=== PATIENT | male | born 1960 | race Caucasian/White ===

== ENCOUNTER 2022-08-05 12:00 | Emergency (ER) | payer BC ==
[2022-08-05] MEDS ORDERED: NA CHLORIDE 0.9% 1,000 ML ONE (13:21)
[2022-08-05 13:36] LABS: Absolute Lymphocytes (CBC) 1.5 K/uL (0.7-4.9); Hematocrit 46.4 % (39.6-49.0); Lymphocytes % 25.6 % (15.3-44.8); MCV 84.5 fL (80-100); MPV 7.8 fL (7.6-11.3); RBC Red Blood Cell Count 5.49 M/uL (4.33-5.43)
[2022-08-05 13:56] LABS: Albumin 3.4 g/dL (3.4-5.0); Bilirubin Total 0.4 mg/dL (0.2-1.0); Potassium 3.9 mEq/L (3.5-5.1); Protein, Total 7.3 g/dL (6.4-8.2); Troponin High Sensitivity 6.8 pg/mL (<58.9)
--- NOTE | 2022-08-05 17:44 | RAD REPORT ---
EXAM DESCRIPTION: CT - Abdomen Pelvis W Contrast - 08/05/2022 5:02 pm CLINICAL HISTORY: ABD PAIN COMPARISON: No comparisons TECHNIQUE: Thin cut axial CT imaging of the abdomen and pelvis was performed following intravenous a dministration of 100 mL Isovue 300. Multiplanar reformats were generated and reviewed. All CT scans are performed using dose optimization technique as appropriate and may include automated exposure control or mA/KV adjustment according to patient size. FINDINGS: No suspicious findings in the lung bases. The liver, spleen, and pancreas show no suspicious findings. Single 1.5 centimeter gallstone near the neck. Symmetric renal function is seen with no hydronephrosis or suspicious renal mass. No dilated bowel loops or bowel wall thickening. Fluid filling through borderline distended bowel, wi th small air-fluid levels. Oral contrast progresses to the level of the sigmoid colon. No free air, f ree fluid or inflammatory stranding. No hernia, mass or bulky lymphadenopathy. Colonic diverticulosis . The urinary bladder is without significant finding. No suspicious bony findings. Anterior wedge compression deformity at L1, likely chronic. IMPRESSION: Fluid filling throughout borderline distended small bowel loops, without evidence of obs truction. Findings may suggest ileus or enteritis. Single gallstone.
--- NOTE | 2022-08-05 18:00 | EDPHYS ---
Physician Documentation [facility] Name: Gianni Szymanski Sr Age: 62 yrs Sex: Male : 1960 Arrival Date: 08/05/2022 Time: 12:00 Bed 19 Private MD: ED Physician Zay Levin HPI: 08/05 14:46 This 62 yrs old Male presents to ER via Ambulatory with complaints of gi blockage. rt 14:47 Patient presents to the ED with 2 days of abdominal pain, nausea, vomiting. For 2 days. rt Patient was seen at [facility] ER yesterday, was diagnosed with a small bowel obstruction, left AGAINST MEDICAL ADVICE at that time when it was recommended that he be transferred here for further eval. The patient states that the symptoms have persisted to today prompting him to come here for further eval. Pain is aching nature, nonradiating. Does report mild abdominal distention, denies other acute complaints at this time, symptoms are moderate in severity.. Historical: - Allergies: 12:18 No Known Allergies; vg1 - Home Meds: 12:18 None [Active]; vg1 - PMHx: 12:18 None; vg1 - PSHx: 12:18 Right Shoulder; Left Knee; Hernia repair; vg1 - Immunization history:: Client reports having NOT received the Covid vaccine. - Social history:: Smoking status: Patient denies any tobacco usage or history of. - Family history:: not pertinent. ROS: 14:47 Constitutional: Negative for fever, chills, and weight loss, Cardiovascular: Negative rt for chest pain, palpitations, and edema, Respiratory: Negative for shortness of breath, cough, wheezing, and pleuritic chest pain, MS/Extremity: Negative for injury and deformity, Skin: Negative for injury, rash, and discoloration, Neuro: Negative for headache, weakness, numbness, tingling, and seizure, Psych: Negative for depression, anxiety, suicide ideation, homicidal ideation, and hallucinations. 14:47 Abdomen/GI: Positive for abdominal pain, Negative for nausea and vomiting. Exam: 13:39 ECG was reviewed by the Attending Physician. rt 14:47 Constitutional: This is a well developed, well nourished patient who is awake, alert, rt and in no acute distress. Head/Face: Normocephalic, atraumatic. Chest/axilla: Normal chest wall appearance and motion. Nontender with no deformity. No lesions are appreciated. Cardiovascular: Regular rate and rhythm with a normal S1 and S2. No gallops, murmurs, or rubs. Normal PMI, no JVD. No pulse deficits. Respiratory: Lungs have equal breath sounds bilaterally, clear to auscultation and percussion. No rales, rhonchi or wheezes noted. No increased work of breathing, no retractions or nasal flaring. 14:47 Abdomen/GI: Mild abdominal distention, mild tenderness diffusely without rebound, guarding, distention. Vital Signs: 12:15 BP 121 / 82; Pulse 102; Resp 18; Temp 98.6(O); Pulse Ox 97% on R/A; Weight 79.38 kg; vg1 Height 5 ft. 10 in. ; Pain 4/10; 13:31 BP 131 / 72; Pulse 91; Resp 20 S; Pulse Ox 98% on R/A; kc6 14:28 BP 112 / 67; Pulse 82; Resp 20 S; Pulse Ox 95% on R/A; kc6 15:00 BP 116 / 75; Pulse 94; Resp 14; Pulse Ox 97% on R/A; eh3 16:00 BP 130 / 95; Pulse 82; Resp 16; Pulse Ox 98% on R/A; eh3 17:00 BP 121 / 74; Pulse 89; Resp 19; Pulse Ox 98% on R/A; eh3 12:15 Body Mass Index 25.11 (79.38 kg, 177.8 cm) vg1 12:15 Pain Scale: Adult vg1 MDM: 13:03 Patient medically screened. rt 18:01 Differential diagnosis: Small bowel obstruction, ileus, gastroenteritis. Data reviewed: rt vital signs, nurses notes, lab test result(s), radiologic studies. Consideration of Admission/Observation Escalation of care including admission/observation considered. Management of patient was discussed with the following: Film Numberer: Discussed with surgeon who requests repeat CT scan be performed, disposition pending that. I considered the following discharge prescriptions or medication management in the emergency department Medications were administered in the Emergency Department. See MAR. Counseling: I had a detailed discussion with the patient and/or guardian regarding: the historical points, exam findings, and any diagnostic results supporting the discharge/admit diagnosis, lab results, radiology results, the need for outpatient follow up, to return to the emergency department if symptoms worsen or persist or if there are any questions or concerns that arise at home. Response to treatment: the patient's symptoms have markedly improved after treatment. ED course: Patient has no evidence of a small bowel obstruction on repeat imaging. Shows enteritis versus ileus. Patient does report having diarrhea, fever enteritis given this point of history. Patient does state that the diarrhea is black, states that he has been taking Pepto-Bismol. He denies any coffee-ground emesis, hematemesis. I do not suspect a GI bleed given normal hemoglobin, this was discussed at length with the patient who is in agreement with discharge. Patient to follow-up as an outpatient, return precautions discussed.. 08/05 13:13 Order name: CBC with Diff; Complete Time: 14:38 rt 08/05 13:13 Order name: CMP; Complete Time: 14:38 rt 08/05 13:13 Order name: Lipase; Complete Time: 14:38 rt 08/05 13:13 Order name: Troponin High Sensitivity; Complete Time: 14:38 rt 08/05 13:13 Order name: CPK; Complete Time: 14:38 rt 08/05 13:13 Order name: Lactate w/ 2H reflex if indic.; Complete Time: 14:38 rt 08/05 14:56 Order name: CT Abd/Pelvis - PO and IV Contrast; Complete Time: 17:45 rt 08/05 13:13 Order name: EKG; Complete Time: 13:13 rt 08/05 13:13 Order name: EKG - Nurse/Tech; Complete Time: 13:30 rt EC:39 Rate is 91 beats/min. Rhythm is regular, Normal Sinus Rhythm with No ectopy. QRS [place] rt is Normal. ID interval is normal. QRS interval is normal. QT interval is normal. No Q waves. T waves are Normal. No ST changes noted. Interpreted by me. Administered Medications: 13:30 Drug: NS 0.9% IV 1000 ml Route: IV; Rate: 1 bolus; Site: right antecubital; kc6 16:00 Follow up: IV Status: Completed infusion; IV Intake: 1000ml eh3 Disposition Summary: 08/05/22 17:59 Discharge Ordered Location: Home rt Problem: new rt Symptoms: have improved rt Condition: Stable rt Diagnosis - Infectious gastroenteritis and colitis, unspecified rt Followup: rt - With: Private Physician - When: 2 - 3 days - Reason: Discharge Instructions: - Discharge Summary Sheet rt - Viral Gastroenteritis, Adult rt Forms: - Work release form eh3 - Medication Reconciliation Form rt - Thank You Letter rt - Antibiotic Education rt - Prescription Opioid Use rt Prescriptions: - ondansetron 4 mg Oral Tablet,disintegrating - take 1 tablet by ORAL route every 6 hours for 4 days as needed for nausea and rt vomiting; 18 tablet; Refills: 0, Product Selection Permitted - dicyclomine 10 mg Oral Capsule - take 1 capsule by ORAL route 4 times per day; 18 capsule; Refills: 0, Product rt Selection Permitted Signatures: Dispatcher [employer] Fela Zmaan RN RN vg1 Ariela Katz RN RN kc6 Zay Levin MD MD rt CarolinaKourtney RN eh3
--- NOTE | 2022-08-05 18:00 | ER ---
Nurse's Notes [facility] Name: Gianni Szymanski Sr Age: 62 yrs Sex: Male : 1960 Arrival Date: 08/05/2022 Time: 12:00 Bed 19 Private MD: Diagnosis: Infectious gastroenteritis and colitis, unspecified Presentation: 08/05 12:15 Chief complaint: Patient states: Was seen at [place] ED last night for N/V was told has vg1 a Bowel Obstruction. Pt currently c/o lower ABD pain with NVD x 2 days. Coronavirus screen: Vaccine status: Patient reports being unvaccinated. Client denies travel out of the [place] in the last 14 days. Ebola Screen: Patient negative for fever greater than or equal to 101.5 degrees Fahrenheit, and additional compatible Ebola Virus Disease symptoms Patient denies exposure to infectious person. Patient denies travel to an Ebola-affected area in the 21 days before illness onset. Initial Sepsis Screen: Does the patient meet any 2 criteria? HR > 90 bpm. Does the patient have a suspected source of infection? No. Patient's initial sepsis screen is negative. Risk Assessment: Do you want to hurt yourself or someone else? Patient reports no desire to harm self or others. Onset of symptoms was August 03, 2022. 12:15 Method Of Arrival: Ambulatory vg1 12:15 Acuity: ALBER 3 vg1 Triage Assessment: 12:18 General: Appears uncomfortable, Behavior is calm, cooperative. Pain: Complains of pain vg1 in right lower quadrant and left lower quadrant Pain currently is 4 out of 10 on a pain scale. Pain began 2-3 days ago. GI: Reports lower abdominal pain, diarrhea, nausea, vomiting. Historical: - Allergies: 12:18 No Known Allergies; vg1 - Home Meds: 12:18 None [Active]; vg1 - PMHx: 12:18 None; vg1 - PSHx: 12:18 Right Shoulder; Left Knee; Hernia repair; vg1 - Immunization history:: Client reports having NOT received the Covid vaccine. - Social history:: Smoking status: Patient denies any tobacco usage or history of. - Family history:: not pertinent. Screenin:[address] [facility] ED Fall Risk Assessment (Adult) History of falling in the last 3 months, kc6 including since admission No falls in past 3 months (0 pts) Confusion or Disorientation No (0 pts) Intoxicated or Sedated No (0 pts) Impaired Gait No (0 pts) Mobility Assist Device Used No (0 pt) Altered Elimination No (0 pt) Score/Fall Risk Level 0 - 2 = Low Risk Oriented to surroundings, Maintained a safe environment, Educated pt \T\ family on fall prevention, incl call for assistance when getting out of bed, Assessed \T\ reinforced patient's understanding of fall precautions, Hourly rounding (assess needs \T\ fall precautionary measures) done. Abuse screen: Denies threats or abuse. Denies injuries from another. Nutritional screening: No deficits noted. Tuberculosis screening: No symptoms or risk factors identified. Assessment: 13:09 General: Appears in no apparent distress. comfortable, Behavior is calm, cooperative, kc6 appropriate for age. Pain: Denies pain. Neuro: Marshall Agitation-Sedation Scale (RASS): 0 - Alert and Calm Level of Consciousness is awake, alert, obeys commands, Oriented to person, place, time, situation, Appropriate for age. Cardiovascular: Heart tones S1 S2 present Capillary refill < 3 seconds Rhythm is sinus tachycardia. Respiratory: Airway is patent Trachea midline Respiratory effort is even, unlabored, Respiratory pattern is regular, symmetrical. GI: Abdomen is flat, non-distended, Bowel sounds hypoactive in right upper quadrant, left upper quadrant, right lower quadrant and left lower quadrant Reports diarrhea, nausea, vomiting. : No signs and/or symptoms were reported regarding the genitourinary system. EENT: No signs and/or symptoms were reported regarding the EENT system. Derm: No signs and/or symptoms reported regarding the dermatologic system. Skin is intact, Skin is pink, warm \T\ dry. Musculoskeletal: No signs and/or symptoms reported regarding the musculoskeletal system. Circulation, motion, and sensation intact. Capillary refill < 3 seconds, Range of motion: intact in all extremities. 14:09 Reassessment: Patient appears in no apparent distress at this time. No changes from kc6 previously documented assessment. Patient and/or family updated on plan of care and expected duration. Pain level reassessed. Patient is alert, oriented x 3, equal unlabored respirations, skin warm/dry/pink. 15:00 Reassessment: Patient appears in no apparent distress at this time. Patient and/or eh3 family updated on plan of care and expected duration. Pain level reassessed. Patient is alert, oriented x 3, equal unlabored respirations, skin warm/dry/pink. 16:00 Reassessment: Patient appears in no apparent distress at this time. Patient and/or eh3 family updated on plan of care and expected duration. Pain level reassessed. Patient is alert, oriented x 3, equal unlabored respirations, skin warm/dry/pink. 17:00 Reassessment: Patient appears in no apparent distress at this time. Patient and/or eh3 family updated on plan of care and expected duration. Pain level reassessed. Patient is alert, oriented x 3, equal unlabored respirations, skin warm/dry/pink. Vital Signs: 12:15 BP 121 / 82; Pulse 102; Resp 18; Temp 98.6(O); Pulse Ox 97% on R/A; Weight 79.38 kg; vg1 Height 5 ft. 10 in. ; Pain 4/10; 13:31 BP 131 / 72; Pulse 91; Resp 20 S; Pulse Ox 98% on R/A; kc6 14:28 BP 112 / 67; Pulse 82; Resp 20 S; Pulse Ox 95% on R/A; kc6 15:00 BP 116 / 75; Pulse 94; Resp 14; Pulse Ox 97% on R/A; eh3 16:00 BP 130 / 95; Pulse 82; Resp 16; Pulse Ox 98% on R/A; eh3 17:00 BP 121 / 74; Pulse 89; Resp 19; Pulse Ox 98% on R/A; eh3 12:15 Body Mass Index 25.11 (79.38 kg, 177.8 cm) vg1 12:15 Pain Scale: Adult vg1 ED Course: 12:08 Patient arrived in ED. am2 12:18 Triage completed. vg1 12:18 Arm band placed on. vg1 12:20 Zay Levin MD is Attending Physician. rt 13:08 Ariela Katz RN is Primary Nurse. kc6 13:08 Patient has correct armband on for positive identification. Bed in low position. Call kc6 light in reach. Side rails up X 1. 13:30 Inserted saline lock: 20 gauge in right antecubital area, using aseptic technique. kc6 Blood collected. 15:00 Report received from JACOB Titus. eh3 15:51 Note: CT exam will be done at 1705, due to 2 hr wait time post finishing oral contrast [id number] at 1505.. 17:03 CT Abd/Pelvis - PO and IV Contrast In Process Unspecified. EDMS 18:15 No provider procedures requiring assistance completed. IV discontinued, intact, eh3 bleeding controlled, No redness/swelling at site. Pressure dressing applied. Administered Medications: 13:30 Drug: NS 0.9% IV 1000 ml Route: IV; Rate: 1 bolus; Site: right antecubital; kc6 16:00 Follow up: IV Status: Completed infusion; IV Intake: 1000ml eh3 Medication: 18:15 VIS not applicable for this client. eh3 Intake: 16:00 IV: 1000ml; Total: 1000ml. 3 Outcome: 17:59 Discharge ordered by . rt 18:16 Discharged to home ambulatory. eh3 18:16 Condition: stable 18:16 Discharge instructions given to patient, family, Instructed on discharge instructions, follow up and referral plans. medication usage, Demonstrated understanding of instructions, follow-up care, medications, Prescriptions given X 2. 18:16 Patient left the ED. 3 Signatures: Dispatcher [employer] EDMS Sherry Pepe Victoria, RN RN vg1 Kourtney Carolina RN RN eh3 Ariela Katz RN RN kc6 Yana Piedra [email or web address] Reyes MD MD rt
[2022-08-05 18:36] VITALS: TEMP 98.6
[2022-08-05 18:43] VITALS: O2SAT 98
[2022-08-05 18:45] VITALS: BP 121/74
--- NOTE | 2022-08-06 13:27 | EKG ---
Test Date: 2022-08-05 Test Time: 13:19:23 Tread Builder: ANNABEL MEASUREMENT RESULTS: Intervals: Rate: 91 NV: 150 QRSD: 94 QT: 356 QTc: 437 [place]: P: 74 NV: 150 QRS: 53 T: 47 INTERPRETIVE STATEMENTS: Normal sinus rhythm Normal ECG Compared to ECG 03/05/2014 16:18:48 Sinus tachycardia no longer present Electronically Signed On 08-06-22 13:25:58 CDT by Raffy Cassidy
== END 2022-08-05 18:16 | disposition home or self-care (01) ==
LOC: ER 12:00
DX: A08.4 Viral intestinal infection, unspecified (principal)
CPT/HCPCS: 96361; 93005; 85025; 36415; 82550; 83605; 84484; 83690; 80053; 74177; 96360; 99284; Q9967; J7030